=== PATIENT | female | born 1975 | race African-American/Black ===

== ENCOUNTER 2019-07-24 01:31 | Inpatient (IN) | payer BC, OTHER, SELFPAY ==
[2019-07-24] MEDS ORDERED: Adacel (T-DAP) 0.5 ML SYRINGE ONE (02:08)
[2019-07-24] MEDS ORDERED: Ondansetron PF 4 MG/2 ML Vial IVP PRN (02:55)
[2019-07-24] MEDS ORDERED: Morphine 2 MG/ML SYRINGE SLOW IVP PRN (02:55)
[2019-07-24] MEDS ORDERED: hydrALAZINE 20 MG/ML VIAL SLOW IVP PRN (02:55)
[2019-07-24] MEDS ORDERED: Dextrose 5% in Water 1,000 ML IV PRN (02:55)
[2019-07-24] MEDS ORDERED: Dextrose 50% Abboject 50 ML SYRINGE SLOW IVP PRN (02:55)
[2019-07-24 02:58] LABS: Hemoglobin 10.8 g/dL (12.0-16.0); Mean Corpuscular Hemoglobin 24.1 pg (27.0-31.0); Mean Corpuscular Volume 75.3 fL (78.0-98.0); RBC Distribution Width 15.3 % (11.5-14.5); Red Blood Cell (RBC) Count 4.51 mill/uL (4.20-5.40); White Blood Cell (WBC) Count 1.3 thou/uL (4.8-10.8)
[2019-07-24 03:00] LABS: INR-International Normal Ratio 1.2; PTT 37.9 SEC (22.9-36.1); Prothrombin Time 15.5 SEC (12.0-14.7)
[2019-07-24 03:11] LABS: Band 13 % (5-11); Lymphocytes 33 % (21-51); MDiff Complete? YES; Mean Platelet Volume 11.2 fL (7.4-10.4); Monocytes 7 % (0-10); Neutrophil 47 % (42-75); Platelet Count 114 thou/uL (130-400); Platelet Morphology Comment Appears Decreased
[2019-07-24 03:21] LABS: ALT (SGPT) 13 U/L (8-55); AST (SGOT) 14 U/L (5-34); Albumin 3.3 g/dL (3.5-5.0); Alkaline Phosphatase 79 U/L (40-110); Anion Gap 13 mmol/L (10-20); BUN (Urea Nitrogen) 7 mg/dL (7.0-18.7); Bilirubin, Total 0.2 mg/dL (0.2-1.2); Calc. Creatinine Clearance 0 mL/min (70-130); Calcium 8.9 mg/dL (7.8-10.44); Carbon Dioxide 21 mmol/L (22-29); Chloride 108 mmol/L (98-107); Estimated GFR-MDRD Greater than 90; Glucose 107 mg/dL (70-105); Potassium 3.3 mmol/L (3.5-5.1); Protein, Total 7.3 g/dL (6.0-8.3); Sodium 139 mmol/L (136-145)
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
[2019-07-24 04:09] VITALS: BMI 27.6
[2019-07-24] MEDS: Sodium Chloride 0.9% 1,000 ML IV SCH ×2 (04:25→15:37)
[2019-07-24 04:45] LABS: Magnesium 1.5 mg/dL (1.6-2.6); Phosphorus 3.2 mg/dL (2.3-4.7)
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
[2019-07-24] MEDS: Acetaminophen 500 MG TAB PO SCH ×3 (06:01→18:05)
[2019-07-24] MEDS ORDERED: Potassium Phosphate 30 MMOL in Sodium Chloride 0.9% 250 ML 250 ML IVPB SCH (06:30)
[2019-07-24] MEDS ORDERED: Magnesium 2 GM/50 ML 2 GM in Premix Bag 1 BAG IVPB SCH (06:30)
--- NOTE | 2019-07-24 07:28 | RAD ---
EXAM: Single view of the chest HISTORY: Dyspnea COMPARISON: 06/04/2019 FINDINGS: Single view of the chest shows a normal sized cardiomediastinal silhouette. There is compl ete opacification of the left thorax. The PICC line is unchanged in position. The bones are unremarkable. IMPRESSION: Complete opacification left thorax may represent a pleural effusion and/or infiltrate.
[2019-07-24] MEDS ORDERED: Famotidine/PF 20 mg/2ml Vial SLOW IVP SCH (09:00)
[2019-07-24] MEDS: Carvedilol 6.25 MG TAB PO SCH ×4 (09:00→21:56)
[2019-07-24] MEDS ORDERED: Non-Formulary Item 1 EACH (Fluconazole [Fluconazole] 200 MG) PO SCH (09:00)
[2019-07-24] MEDS: Fluconazole 100 MG TAB PO SCH (09:04)
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
--- NOTE | 2019-07-24 10:19 | CT ---
CT head noncontrast HISTORY: Head injury. Epidural hematoma. Follow-up. COMPARISON: Earlier exam on the same date. FINDINGS: The biconvex lentiform hyperdense fluid collection along the right parietal inner calvarium is again demonstrated. It is of more uniform hyperdensity on the current study. Measured at the same location, it is now 4.6 cm length by 1.9 cm depth (previously 5.1 cm x 2.0 cm). There is effacem ent of the underlying right parietal gyri. Slight effacement of the right lateral ventricle with minimal leftward displacement of the septum pellucidum is stable. Physiologic calcification is apparent at each basal ganglia. Visualized paranasal sinuses remain well -aerated. IMPRESSION: Interval evolution and slight retraction of the right parietal epidural hematoma. Mass ef fect is unchanged. No new abnormalities are demonstrated.
[2019-07-24] MEDS: Potassium Chloride 20 MEQ TAB PO SCH ×2 (11:17→21:56)
[2019-07-24] MEDS: CEFAZOLIN 2 GM in Premix Bag 1 BAG IVPB SCH ×2 (11:17→18:44)
[2019-07-24] MEDS: Polyethylene Glycol 3350 17 GM Packet PO SCH ×2 (11:18→17:13)
[2019-07-24] MEDS: Senokot S 8.6-50 MG TAB PO SCH ×3 (11:18→21:57)
[2019-07-24] MEDS ORDERED: Morphine 2 MG/ML SYRINGE SLOW IVP SCH (15:15)
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
[2019-07-24] MEDS ORDERED: oxyCODONE 5 MG TAB PO PRN (20:26)
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
[2019-07-25] MEDS: Acetaminophen 500 MG TAB PO SCH ×3 (00:29→12:28)
[2019-07-25 06:31] LABS: Anion Gap 10 mmol/L (10-20); BUN (Urea Nitrogen) 6 mg/dL (7.0-18.7); Calc. Creatinine Clearance 167 mL/min (70-130); Carbon Dioxide 22 mmol/L (22-29); Chloride 110 mmol/L (98-107); Estimated GFR-MDRD Greater than 90; Glucose 86 mg/dL (70-105); Magnesium 1.7 mg/dL (1.6-2.6); Potassium 3.4 mmol/L (3.5-5.1); Sodium 139 mmol/L (136-145)
[2019-07-25 06:45] LABS: Mean Corpuscular HGB CONC 31.4 g/dL (32.0-36.0); Mean Corpuscular Hemoglobin 23.6 pg (27.0-31.0); Mean Corpuscular Volume 75.2 fL (78.0-98.0); Mean Platelet Volume 10.3 fL (7.4-10.4); Platelet Count 175 thou/uL (130-400); Red Blood Cell (RBC) Count 3.83 mill/uL (4.20-5.40); White Blood Cell (WBC) Count 2.4 thou/uL (4.8-10.8)
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
[2019-07-25] MEDS ORDERED: Cephalexin 250 MG CAP PO SCH (09:00)
[2019-07-25] MEDS: Fluconazole 100 MG TAB PO SCH (09:03)
[2019-07-25] MEDS: Senokot S 8.6-50 MG TAB PO SCH (09:04)
[2019-07-25] MEDS: Carvedilol 6.25 MG TAB PO SCH (09:04)
[2019-07-25] MEDS: Polyethylene Glycol 3350 17 GM Packet PO SCH (09:04)
[2019-07-25] MEDS: Potassium Chloride 20 MEQ TAB PO SCH (09:04)
[2019-07-25 09:10] LABS: Band 27 % (5-11); Eosinophils 1 % (0-10); Hypochromia SLIGHT = 6-15 cells (100X) (0-5/hpf); Lymphocytes 17 % (21-51); MDiff Complete? YES; Microcytosis SLIGHT = 6-15 cells (100X) (0-5/hpf); Monocytes 8 % (0-10); Neutrophil 46 % (42-75); Platelet Morphology Comment Appears Adequate; Polychromasia SLIGHT = 2-3 cells (100X) (0-2/hpf)
[2019-07-25 12:20] VITALS: BP 128/93; TEMP 98.1
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
== END 2019-07-25 16:43 | disposition home or self-care (01) | DRG 86 ==
LOC: ERS 01:31 → CCU 02:42 → SURG A 20:06
PROVIDERS: ADMIT Specialist; ATTEND Specialist
DX: S06.4X0A Epidural hemorrhage without loss of consciousness, initial encounter (principal); J90 Pleural effusion, not elsewhere classified; C40.22 Malignant neoplasm of long bones of left lower limb; C40.02 Malignant neoplasm of scapula and long bones of left upper limb; I10 Essential (primary) hypertension; S00.03XA Contusion of scalp, initial encounter; E87.6 Hypokalemia; E83.42 Hypomagnesemia; R40.2412 Glasgow coma scale score 13-15, at arrival to emergency department; Z79.01 Long term (current) use of anticoagulants; Z98.890 Other specified postprocedural states; Z86.718 Personal history of other venous thrombosis and embolism; W34.09XA Accidental discharge from other specified firearms, initial encounter; Y93.89 Activity, other specified; Y92.89 Other specified places as the place of occurrence of the external cause
CPT/HCPCS: 70450; 71045; 80048; 80053; 83735; 84100; 85025; 85610; 85730; 90471; 90715; 96365; G0390; J0690; J2270; J3475; J7050; S0028